=== PATIENT | female | born 1995 | race Caucasian/White ===

== ENCOUNTER 2019-06-06 14:43 | Emergency (ER) | payer BC, OTHER ==
[2019-06-06 16:17] VITALS: BP 113/63
--- NOTE | 2019-06-06 17:33 | UC ---
Skin Complaint HPI - HPI Summary HPI Summary: 23 yo with 3 day onset of increasing pain and tender nodule in the buttock fold. - History of Current Complaint Chief Complaint: UCSkin Time Seen by Provider: 06/06/19 17:23 Stated Complaint: TAILBONE SKIN Hx Obtained From: Patient Hx Last Menstrual Period: 06/01/19 Onset/Duration: Gradual Onset, Lasting Days - 3 Skin Exposure Onset/Duration: Days Ago Timing: Constant Onset Severity: Moderate Current Severity: Moderate Pain Intensity: 10 Location: Discrete Character: Swelling, Pain, Redness Aggravating Factor(s): Touch, Other - sitting Alleviating Factor(s): Nothing Associated Signs & Symptoms: Positive: Nausea, Vomiting - vomited x 1 today - Allergy/Home Medications Allergies/Adverse Reactions: Allergies Allergy/AdvReac Type Severity Reaction Status Date / Time No Known Allergies Allergy Verified 06/06/19 16:12 Home Medications: Home Medications Hydrocodone/Acetaminophen [Hydrocodone/Acetaminophen 5-325 mg] 2 tab PO Q12H PRN #12 tab MDD 4 06/06/19 [Rx] Ibuprofen TAB* [Advil TAB*] 400 mg PO Q6H PRN 06/06/19 [History Confirmed ] cephALEXin [Keflex] 500 mg PO QID #28 capsule 06/06/19 [Rx] PMH/Surg Hx/FS Hx/Imm Hx Previously Healthy: Yes - Surgical History Surgical History: None - Family History Known Family History: Positive: None - not obtained today - Social History Occupation: Employed Full-time Alcohol Use: None Substance Use Type: Marijuana Smoking Status (MU): Never Smoked Tobacco - Immunization History Vaccination Up to Date: Yes Review of Systems All Other Systems Reviewed And Are Negative: Yes Constitutional: Positive: Negative Skin: Positive: Other - increasing size of skin nodule. Eyes: Positive: Negative ENT: Positive: Negative Respiratory: Positive: Negative Cardiovascular: Positive: Negative Gastrointestinal: Positive: Vomiting - x 1, Nausea Genitourinary: Positive: Negative Motor: Positive: Negative Neurovascular: Positive: Negative Musculoskeletal: Positive: Negative Neurological/Mental Status: Positive: Negative Psychological: Positive: Negative Is Patient Immunocompromised?: No Physical Exam Triage Information Reviewed: Yes Appearance: Well-Appearing, Pain Distress - moderate, Thin Vital Signs: Initial Vital Signs Temp 98.7 F 06/06/19 16:13 Pulse 93 06/06/19 16:13 Resp 14 06/06/19 16:13 BP 113/63 06/06/19 16:13 Pulse Ox 100 06/06/19 16:13 Vital Signs Reviewed: Yes ENT: Positive: Pharynx normal Neck: Positive: Supple, Nontender, No Lymphadenopathy Respiratory: Positive: Lungs clear, Normal breath sounds Cardiovascular: Positive: RRR, No Murmur Musculoskeletal Exam: Normal Neurological Exam: Normal Psychological Exam: Normal Skin Exam: Other - 5 x 3 cm firm erythematous nodule to the right of the upper buttock fold. Very tender to touch. Not fluctuant, no pointing. Course/Dx - Course Course Of Treatment: begiin cephalexin, discussed pain control, referral to surgery Hydrocodone rx given. HCS search showed no previous rx, search ref # [id number]. - Differential Diagnoses - Skin Complaint Differential Diagnoses: Abscess, Cellulitis - Diagnoses Provider Diagnosis: Pilonidal abscess of yina cleft Discharge ED - Sign-Out/Discharge Documenting (check all that apply): Patient Departure All imaging exams completed and their final reports reviewed: No Studies - Discharge Plan Condition: Stable Disposition: HOME Prescriptions: cephALEXin [Keflex] 500 mg PO QID #28 capsule Hydrocodone/Acetaminophen [Hydrocodone/Acetaminophen 5-325 mg] 2 tab PO Q12H PRN #12 tab MDD 4 PRN Reason: Pain - Severe Patient Education Materials: Pilonidal Cyst (ED) Referrals: No Primary Care Phys,NOPCP [Primary Care Provider] - Leo Henderson [Medical Doctor] - Additional Instructions: You have a pilonidal cyst which is forming an abscess. This will eventually need surgical treatment. If it becomes soft and fluctuant over the weekend, you can return for incision and drainage. Begin the course of antibiotic to treat the infection. Use warm moist compresses to the area for 10 minutes every 2 to 3 hours. Take ibuprofen 600mg every hours for base pain control: take with food, and stop if it causes stomach upset. You can use hydrocodone once or twice per day for additional pain control, but using it to decrease pain for sleep is the time when you will most need it. Please call Dr. Crowell's office on Sunday to schedule an assessment. - Billing Disposition and Condition Condition: STABLE Disposition: Home
== END 2019-06-06 18:00 | disposition home or self-care (01) ==
LOC: UCCORT 14:43
DX: L05.01 Pilonidal cyst with abscess (principal); R11.2 Nausea with vomiting, unspecified
CPT/HCPCS: 99202; G0463